=== PATIENT | male | born 1980 | race Caucasian/White ===

== ENCOUNTER 2019-10-28 20:49 | Emergency (ER) | payer OTHER, MEDICAID, SELFPAY ==
[~2019-10-28] VITALS: Ht 177.8 cm; Wt 113.4 kg
[~2019-10-28 20:49] MED LIST: DOXY-244 PO; ESCI10TA PO; LINE600T15 PO; METH5TAB4 PO; RISP1TAB7 PO; SACC250C3 PO; TYC3 PO; VIS50 PO
[2019-10-28 20:50] VITALS: BP_SYST 119
[2019-10-28] MEDS ORDERED: NACL 0.9% 1,000 ML IV ONE (21:15)
[2019-10-28] MEDS ORDERED: ONDANSETRON HCL 4 MG/2 ML VIAL IM ONE (21:30)
[2019-10-28] MEDS ORDERED: KETOROLAC TROMETHAMINE 15 MG VIAL IM ONE (21:45)
[2019-10-28 21:47] LABS: ANION GAP 16 (5-15); CALCIUM 9.1 mg/dL (8.4-11.0); CHLORIDE 104 mmol/L (98-107); CREATININE 0.85 mg/dL (0.55-1.30); GLUCOSE 126 mg/dL (70-99); POTASSIUM 3.5 mmol/L (3.5-5.1); SODIUM SERUM 141 mmol/L (136-145); UREA NITROGEN, BLOOD 13 mg/dL (8-21)
[2019-10-28 21:48] LABS: BASOPHILS % (AUTO) 0.3 % (0.0-2.0); EOSINOPHILS % (AUTO) 0.4 % (0.0-4.0); HEMATOCRIT 46.2 % (36-54); HEMOGLOBIN 15.2 g/dL (14.0-18.0); LYMPHOCYTES # (AUTO) 1.1 K/uL (1.0-5.5); LYMPHOCYTES % (AUTO) 10.3 % (20.5-51.5); MEAN CORPUSCULAR HEMOGLOBIN 28 pg (27-31); MEAN CORPUSCULAR HGB CONC 33 % (32-36); MEAN CORPUSCULAR VOLUME 86 fL (79.0-98.0); MONOCYTES # (AUTO) 0.5 K/uL (0.0-1.0); MONOCYTES % (AUTO) 4.4 % (1.7-9.3); NEUTROPHILS # (AUTO) 9.4 K/uL (1.8-7.7); NEUTROPHILS % (AUTO) 84.6 % (40.0-70.0); PLATELET COUNT (AUTO) 350 K/uL (130-430); RED BLOOD CELL COUNT(AUTO) 5.39 MIL/uL (4.2-6.2); RED CELL DISTRIBUTION WIDTH 17.1 % (9.0-15.0); WHITE BLOOD COUNT (AUTO) 11.1 K/uL (4.8-10.8)
[2019-10-28] MEDS ORDERED: ONDANSETRON HCL 4 MG/2 ML VIAL ONE (21:51)
[2019-10-28 21:57] LABS: GFR AFRICAN AMERICAN 131 mL/min (>90)
[2019-10-28 22:00] LABS: ALANINE AMINOTRANSFERASE 47 U/L (12-78); ALCOHOL, BLOOD 114 mg/dL (<10); ASPARTATE AMINOTRANSFERASE 23 U/L (10-37)
[2019-10-28 22:21] LABS: BILIRUBIN,URINE NEGATIVE (NEGATIVE); CLARITY/URINE CLEAR (CLEAR); COLOR,URINE YELLOW (YELLOW); GLUCOSE,URINE NEGATIVE (NEGATIVE); KETONES,URINE NEGATIVE (NEGATIVE); LEUKOCYTE ESTERASE ,URINE NEGATIVE (NEGATIVE); NITRITE, URINE NEGATIVE (NEGATIVE); PROTEIN URINE 3+ (NEGATIVE); UROBILINOGEN,URINE 0.2 (0.2-1.0)
[2019-10-28 22:26] LABS: BLOOD, URINE TRACE (NEGATIVE)
[2019-10-28 22:28] LABS: ACETAMINOPHEN < 1 ug/mL (1-30); TOTAL BILIRUBIN 0.2 mg/dL (0.0-1.0)
[2019-10-28 22:30] LABS: BARBITURATE, URINE NEGATIVE (NEG <=200); METHAMPHETAMINES SCREEN,URINE POSITIVE (NEG <=500); URINE AMPHETAMINE POSITIVE (NEG <=500); URINE METHADONE NEGATIVE (NEG <=200)
[2019-10-28 22:31] LABS: BENZODIAZEPINE, URINE POSITIVE (NEG <=150); CANNABINOID, URINE POSITIVE (NEG <=50); COCAINE, URINE NEGATIVE (NEG <=150); OPIATE, URINE NEGATIVE (NEG <=100); PHENCYCLIDINE SCREEN,URINE NEGATIVE (NEG <=25); UR TRICYCLIC ANTIDEPRESSANTS NEGATIVE (NEG <=300); URINE OXYCODONE SCREEN NEGATIVE (NEG <=100); URINE PROPOXYPHENE SCREEN NEGATIVE (NEG <=300)
[2019-10-28 22:40] LABS: BACTERIA,URINE FEW /HPF (None Seen); RBC,URINE 0-3 /HPF (0-3); WBC,URINE 0-3 /HPF (0-3)
[2019-10-28 22:41] LABS: COARSE GRANULAR CASTS,URINE 0-10 /LPF (None Seen); HYALINE CASTS, URINE 0-10 /LPF (None Seen); MUCUS,URINE 1+ /LPF (None Seen)
[2019-10-29] MEDS ORDERED: KETOROLAC TROMETHAMINE 15 MG VIAL IM ONE (00:45)
[2019-10-29] MEDS ORDERED: PANTOPRAZOLE SODIUM 40 MG TAB PO ONE (02:15)
[2019-10-29 06:54] LABS: CALCIUM 8.7 mg/dL (8.4-11.0); CREATININE 0.77 mg/dL (0.55-1.30); POTASSIUM 4.2 mmol/L (3.5-5.1)
[2019-10-29 07:01] LABS: ALBUMIN 2.8 g/dL (3.4-4.8); TOTAL BILIRUBIN 0.3 mg/dL (0.0-1.0)
[2019-10-29] MEDS ORDERED: KETOROLAC TROMETHAMINE 60 MG/2 ML VIAL IM ONE (07:45)
[2019-10-29] MEDS ORDERED: risperiDONE 1 MG TABLET (RisperDAL) PO ONE (09:30)
[2019-10-29] MEDS ORDERED: DIVALPROEX SODIUM 250 MG TABLET(DEPAKOTE) PO ONE (09:30)
[2019-10-29] MEDS ORDERED: LORazepam 1 MG TABLET PO ONE (11:45)
[2019-10-29 15:14] VITALS: BP_SYST 121
== END 2019-10-29 15:15 ==
LOC: SED 20:49
DX: T40.7X1A Poisoning by cannabis (derivatives), accidental (unintentional), initial encounter (principal); R45.851 Suicidal ideations; G93.89 Other specified disorders of brain; Z88.0 Allergy status to penicillin; Z79.899 Other long term (current) drug therapy; Y92.89 Other specified places as the place of occurrence of the external cause
CPT/HCPCS: 36415; 36600; 70450; 71045; 80053; 80307; 81000; 82803; 85025; 87426; 93005; 96360; 96361; 96372 ×2; 99291; 99292; G0480; G0481; G0482; J1885 ×3; J2405; J7030

== ENCOUNTER 2020-12-24 00:34 | Emergency (ER) | payer OTHER, MEDICAID, SELFPAY ==
[~2020-12-24] VITALS: Ht 165.1 cm; Wt 90.7 kg
== END 2020-12-24 01:20 | disposition left against medical advice (07) ==
LOC: SED 00:34
DX: F19.90 Other psychoactive substance use, unspecified, uncomplicated (principal); Z53.21 Procedure and treatment not carried out due to patient leaving prior to being seen by health care provider

== ENCOUNTER 2021-05-20 15:01 | Emergency (ER) | payer OTHER, MEDICAID ==
[~2021-05-20] VITALS: Ht 165.1 cm; Wt 102.1 kg
[2021-05-20 15:01] VITALS: BP_SYST 156
[2021-05-20] MEDS ORDERED: PHENYLEPHRINE HCL 10 MG/ML VIAL (NEOSYNEPHRINE) IVP ONE (15:30)
[2021-05-20] MEDS ORDERED: TERBUTALINE SULFATE 1 MG/ML VIAL SUBCUT ONE (15:30)
[2021-05-20] MEDS ORDERED: LIDOCAINE 1%, 20 ML MDV 20 ML ONE (15:33)
[2021-05-20] MEDS ORDERED: LIDOCAINE 1% 10 MG/ML, 20 ML MDV INJ ONE (15:45)
[2021-05-20] MEDS ORDERED: DIPH-TET-PERTUS Vaccine 0.5 ML VIAL (ADACEL) I.M. ONE (15:45)
[2021-05-20 16:11] VITALS: BP_SYST 147
== END 2021-05-20 16:11 | disposition left against medical advice (07) ==
LOC: SED 15:01
DX: N48.30 Priapism, unspecified (principal); I10 Essential (primary) hypertension; E11.9 Type 2 diabetes mellitus without complications; J44.9 Chronic obstructive pulmonary disease, unspecified; Z79.899 Other long term (current) drug therapy; Z88.0 Allergy status to penicillin
CPT/HCPCS: 54220; 96372; 99284; J2001; J2370; J3105

== ENCOUNTER 2021-05-21 15:42 | Emergency (ER) | payer OTHER, MEDICAID ==
[~2021-05-21] VITALS: Ht 165.1 cm; Wt 110.7 kg
[2021-05-21 15:45] VITALS: BP_SYST 133
== END 2021-05-21 16:06 | disposition left against medical advice (07) ==
LOC: SED 15:42
DX: N48.30 Priapism, unspecified (principal); J44.9 Chronic obstructive pulmonary disease, unspecified; E11.9 Type 2 diabetes mellitus without complications; I10 Essential (primary) hypertension; R56.9 Unspecified convulsions; F12.90 Cannabis use, unspecified, uncomplicated; Z88.0 Allergy status to penicillin
CPT/HCPCS: 99281